=== PATIENT | male | born 1950 | race Caucasian/White ===

== ENCOUNTER 2018-07-28 14:16 | Outpatient (CLI) | payer MEDICARE ==
--- NOTE | 2018-07-28 14:40 | RAD ---
2 views of the lumbar spine: 07/28/2018 COMPARISON: 06/23/2018 HISTORY: Reevaluate lumbar spine fracture FINDINGS: As seen on the prior examination, an anterior wedge compression fracture/superior endplate fracture is noted involving the L1 vertebral body. The degree of vertebral body height loss is approximately 40%, unchanged when compared to the prior exam. There is multilevel disc space narrowin g and anterior osteophyte formation within the lumbar spine, stable. Anterolisthesis of L5 on S1 is again noted, measuring approximately 1 cm, on the basis of bilateral L5 pars defects. No new fracture is identified on this examination. IMPRESSION: Stable appearance of the lumbar spine as detailed above.
== END 2018-07-28 14:17 | disposition home or self-care (01) ==
LOC: TBSIIMAG 14:16
PROVIDERS: ATTEND Neurological Surgery
DX: S22.009A Unspecified fracture of unspecified thoracic vertebra, initial encounter for closed fracture (principal); S32.009A Unspecified fracture of unspecified lumbar vertebra, initial encounter for closed fracture
CPT/HCPCS: 72100

== ENCOUNTER 2018-08-26 14:14 | Outpatient (CLI) | payer MEDICARE ==
--- NOTE | 2018-08-26 14:36 | RAD ---
EXAM: XR Lumbar Spine 2 Or 3 View PROVIDED CLINICAL HISTORY: Thoracolumbar spine fractures. COMPARISON: 07/28/2018. FINDINGS: There is stable height loss of an anterior wedge-shaped compression fracture involving the L1 vertebr al body. There is also questionable slight height loss involving the superior endplate of the L2 vertebral body unchanged from prior exam. Multilevel degenerative changes are seen throughout the lum bar spine with multilevel osteophytes present. There is stable anterolisthesis of L5 on S1 on the basis of bilateral pars defects. Trace anterolisthesis of L4 on L5 noted on the prior exam is not dem onstrated on this study. Prominent vascular calcifications are seen in the abdominal aorta and iliac arteries. Artifact overlies the lumbar spine likely related to overlying back brace. IMPRESSION: 1. Stable height loss of a wedge-shaped compression fracture L1 vertebral body. 2. Questionable minimal height loss involving the superior endplate of the L2 vertebral body. However , this is also a stable finding. 3. Multilevel degenerative changes with stable spondylolisthesis at the lumbosacral junction.
== END 2018-08-26 14:15 | disposition home or self-care (01) ==
LOC: TBSIIMAG 14:14
PROVIDERS: ATTEND Neurological Surgery
DX: S22.008A Other fracture of unspecified thoracic vertebra, initial encounter for closed fracture (principal); M47.817 Spondylosis without myelopathy or radiculopathy, lumbosacral region; M43.17 Spondylolisthesis, lumbosacral region
CPT/HCPCS: 72100

== ENCOUNTER 2018-10-14 14:57 | Inpatient (IN) | payer MEDICARE ==
[2018-10-14 15:35] LABS: #Eosinphils 0.1 thou/uL (0.0-0.7); #Lymphocytes 1.1 thou/uL (1.20-3.40); #Monocytes 0.7 thou/uL (0.11-0.59); #Neutrophils 3.9 thou/uL (1.40-6.50); %Basophils 0.3 % (0.0-1.0); %Eosinophils 2.4 % (0.0-10.0); %Lymphocytes 18.6 % (21.0-51.0); %Monocytes 11.9 % (0.0-10.0); %Neutrophils 66.7 % (42.0-75.0); Hemoglobin 11.7 g/dL (14.0-18.0); Mean Corpuscular HGB CONC 36.5 g/dL (32.0-36.0); Mean Corpuscular Hemoglobin 33.8 pg (27.0-31.0); Mean Corpuscular Volume 92.7 fL (78.0-98.0); Mean Platelet Volume 5.7 fL (7.4-10.4); Platelet Count 242 thou/uL (130-400); RBC Distribution Width 11.4 % (11.5-14.5); Red Blood Cell (RBC) Count 3.45 mill/uL (4.70-6.10); White Blood Cell (WBC) Count 5.9 thou/uL (4.8-10.8)
[2018-10-14 15:41] LABS: ALT (SGPT) 12 U/L (8-55); AST (SGOT) 18 U/L (5-34); Albumin 4.2 g/dL (3.4-4.8); Alkaline Phosphatase 105 U/L (40-150); Anion Gap 13 mmol/L (10-20); BUN (Urea Nitrogen) 10 mg/dL (8.4-25.7); Bilirubin, Total 0.5 mg/dL (0.2-1.2); Calc. Creatinine Clearance 0 mL/min (70-130); Calcium 8.9 mg/dL (7.8-10.44); Carbon Dioxide 24 mmol/L (23-31); Chloride 78 mmol/L (98-107); Estimated GFR-MDRD Greater than 90; Globulin 2.9 g/dL (2.4-3.5); Glucose 84 mg/dL (80-115); Potassium 3.4 mmol/L (3.5-5.1); Protein, Total 7.1 g/dL (5.8-8.1)
[2018-10-14 15:47] LABS: Sodium 112 mmol/L (136-145)
[2018-10-14] MEDS ORDERED: Multivitamins, Adult 10 ML, Folic Acid 1 MG, Thiamine HCl 100 MG in Dextrose 5 %-0.45 %... IV SCH (16:15)
[2018-10-14 16:19] LABS: Bilirubin Negative (Negative); Blood, Urine Negative (Negative); Clarity Clear (Clear); Glucose, Urine (Dipstick) Normal (Negative); Leukocyte Negative Leu/uL (Negative); Nitrite Negative (Negative); Protein, Urine (Dipstick) Negative (Neg-Trace); Urobilinogen Normal mg/dL (Less than 2)
[2018-10-14] MEDS ORDERED: Melatonin 3 MG TAB PO PRN (17:03)
[2018-10-14] MEDS ORDERED: Lorazepam 2 MG/ML VIAL SLOW IVP PRN (17:06)
[2018-10-14 17:34] LABS: Anion Gap 11 mmol/L (10-20); BUN (Urea Nitrogen) 9 mg/dL (8.4-25.7); Calc. Creatinine Clearance 0 mL/min (70-130); Calcium 8.8 mg/dL (7.8-10.44); Carbon Dioxide 26 mmol/L (23-31); Chloride 82 mmol/L (98-107); Estimated GFR-MDRD Greater than 90; Glucose 99 mg/dL (80-115); Potassium 3.3 mmol/L (3.5-5.1)
[2018-10-14 17:39] LABS: Sodium 116 mmol/L (136-145)
--- NOTE | 2018-10-14 18:12 | HP ---
CHIEF COMPLAINT: Abnormal labs. HISTORY OF PRESENT ILLNESS: A 68-year-old male with history of hypertension, seizures, hospitalized here last month in conjunction with pneumonia, depression , dyslipidemia, tobacco abuse, daily alcohol use, who presents to the emergency room at the instruction of his primary care provider due to a low sodium level. The patient reports that his hip has been hurting him since his last admission here and he was seen by his primary care provider, Dr. Guajardo, yesterday. At that visit, labs were ordered and he was called today and told that his sodium is low and he needed to come to the emergency room. He denies any fevers or chills, nausea or vomiting, lightheadedness or dizziness. He does report a poor appetite and very little solid food intake, states the majority of his day is spent drinking water or beer. He denies any precipitating or relieving factors. He was hospitalized for something similar out at [facility] earlier this year and his medications were adjusted at that time. For the hip pain, the patient reports he was on ibuprofen, taking 4 tablets of 200 mg each about 4 times per day, denies any other pain medications. He has had 2 to 3 episodes of nonbloody diarrhea recently, none today. In the emergency room, the patient found to have a sodium level today of 112, yesterday was 113, and hospitalist called for admission. He did receive 1 L of normal saline, has ordered 1 L of banana bag; however, this has been stopped and very little of it has infused. He also had a 2nd liter of NS infusing that was d/c. ALLERGIES: NO KNOWN DRUG ALLERGIES. CURRENT MEDICATIONS: Reconciled with the bottles. 1. Amlodipine 10 mg daily. 2. Florastor 250 mg daily. 3. Thiamine 250 mg one-half tablet daily. 4. Isosorbide mononitrate 60 mg daily. 5. Clonidine 0.2 mg one-half tablet b.i.d. 6. Magnesium oxide 400 mg daily. 7. Melatonin 3 mg at bedtime. 8. Benazepril 20 mg b.i.d. 9. Fluoxetine 10 mg daily at bedtime. 10. Multivitamin daily. 11. Coenzyme Q10. 12. Vitamin D one-half tablet daily. 13. Vitamin E daily. PAST MEDICAL HISTORY: 1. Hypertension. 2. Dyslipidemia. 3. Insomnia. 4. Seizures, diagnosed at last hospitalization here. 5. Hyponatremia with prior hospitalization this year at outside hospital. PAST SURGICAL HISTORY: Denies. SOCIAL HISTORY: The patient reports that he has 1 or 2 beers per day, states that he cut down since his last hospitalization and at that time was drinking 8 to 12 beers per day. He reports 8 cigarettes per day, down from 2 packs per day. His daughters Peggy West and Dary Chow are his surrogate decision makers and he is a full code. FAMILY HISTORY: Significant for heart problems. REVIEW OF SYSTEMS: Positive for diarrhea, anorexia. Negative for lightheaded, dizzy, fevers, chills, nausea, vomiting, abdominal pain, or seizures. All remaining review of systems are reviewed and negative. PHYSICAL EXAMINATION: VITAL SIGNS: Blood pressure 151/86, pulse 76, respirations 16, temperature 98.4 , sats 96% on room air. GENERAL: Alert and oriented, thin male, in no apparent distress. Able to speak in full sentence and answer appropriately. HEENT: His pupils are equal and round. No scleral icterus. Oral mucosa is pink and moist. NECK: Supple and nontender. LYMPHATICS: No palpable cervical or supraclavicular lymphadenopathy. LUNGS: Clear to auscultation bilateral. No audible wheezing, rhonchi, or rales. HEART: Normal S1 and S2. Regular rate and rhythm. No significant murmur. ABDOMEN: Soft. Present bowel sounds. Nontender. Nondistended. EXTREMITIES: No edema. SKIN: No visible rashes. VASCULAR: 2+ dorsalis pedis pulses. TALAVERA FINDINGS AND TEST RESULTS: CBC; 5.9, 11.7, 32.0, 242 with an MCV of 92. Chemistry; 112, 3.4, 78, 24, 10, 0.66, 84. LFTs are normal. Urinalysis; specific gravity 1.005 and negative. IMPRESSION: 1. Hyponatremia, hypochloremia in the context of poor p.o. intake for solid food , and what sounds, excessive water intake as well as beer. 2. Hypokalemia, mild. 3. Normocytic anemia, mild. 4. Hypertension, unknown control. 5. Depression, unknown control. 6. Tobacco abuse. 7. Seizure with last hospitalization, attributed to pneumonia. PLAN: 1. Admission to the ICU due to the severe hyponatremia. 2. Consultation with Dr. Schaeffer of Nephrology and by protocol Pulmonology Critical Care. 3. Fluid restriction of 1 L per day on a regular diet. All IV fluids have been stopped to include the banana bag. 4. Potassium replacement. 5. Continuing his antihypertensives with hold parameters to avoid hypotension. 6. P.r.n. Ativan for seizures, agitation, or signs of alcohol withdrawal in conjunction with the ASE protocol. One exception of the HAYLIE protocol is the banana bag, which will not be infused due to the hyponatremia. 7. Monitoring with q.4 hour BMPs. 8. We will obtain urine osmolalities, TSH and a cortisol level in the morning. 9. Vitamin supplementation with folic acid, vitamin B12, and thiamine. 10. Nicotine replacement as needed. 11. DVT prophylaxis with pneumatic compression devices. 12. GI prophylaxis not indicated. 13. Code status is full and surrogate decision maker are the patient's daughters as noted above. 14. The patient is at high risk given age, comorbidities, and current presentation. Job ID: [id number] [facility]OSPITALBritni
[2018-10-14] MEDS ORDERED: Potassium Chloride 20 MEQ TAB PO SCH ×2 (18:30→22:00)
[2018-10-14 18:57] VITALS: BMI 21.9
[2018-10-14] MEDS: Nicotine 14 MG PATCH TD SCH (18:58)
[2018-10-14 19:20] LABS: Anion Gap 12 mmol/L (10-20); BUN (Urea Nitrogen) 9 mg/dL (8.4-25.7); Calc. Creatinine Clearance 99 mL/min (70-130); Calcium 9.1 mg/dL (7.8-10.44); Carbon Dioxide 27 mmol/L (23-31); Chloride 84 mmol/L (98-107); Estimated GFR-MDRD Greater than 90; Glucose 95 mg/dL (80-115); Potassium 3.1 mmol/L (3.5-5.1); Sodium 120 mmol/L (136-145)
--- NOTE | 2018-10-14 19:23 | CON ---
DATE OF CONSULTATION: 10/14/2018 REASON FOR CONSULTATION: Hyponatremia. HISTORY OF PRESENT ILLNESS: A 68-year-old gentleman who was sent to the hospital after he was noted to have a sodium of 112. The patient was given 1 L of normal saline before I examining the patient, and the patient's sodium has increased to 116. The patient denies headache, numbness, tingling, or weakness. Denies any nausea, vomiting, or chest pain. PAST MEDICAL HISTORY: Significant for hypertension; anemia; hyponatremia, multiple occasions; history of beer abuse; history of seizures. PAST SURGICAL HISTORY: None. MEDICATIONS: Home medications list reviewed. Hospital medication list reviewed. ALLERGIES: REVIEWED. REVIEW OF SYSTEMS: Fifteen-point review of system was performed, negative except for positive noted above. A 12-point review of systems was performed and was negative except for positives noted above. GENERAL: HEAD: NECK: No swelling or lumps. NOSE: No epistaxis or discharge. EYES: No diplopia or pain. RESPIRATORY: CARDIOVASCULAR: GASTROINTESTINAL: /[employer]: MUSCULOSKELETAL: No joint pain. NEUROPSYCHIATIC SYSTEMS: No suicidal ideation. No ideation. SKIN: Denies any rash or ulcer. CONSTITUTIONAL: No fever or chills. PHYSICAL EXAMINATION: GENERAL: The patient is awake and alert. VITAL SIGNS: Afebrile, pulse 75, breathing 16, blood pressure was 151/86. GENERAL APPEARANCE AND MENTAL STATUS: Fair. HEAD/NECK: Normocephalic. Atraumatic. EYES: EOMI. No deformity. EARS: Clear. No ulcers. NOSE: Intact. No lesions. MOUTH: Clear. No discharge. THROAT: Clear. No exudate. LUNGS: Clear. No crackles. CARDIAC: S1, S2. No rub. ABDOMEN: Benign. Bowel sounds positive. GENITALIA/RECTUM: Cline absent. BACK/EXTREMITIES: Edema 0+. NEUROLOGICAL: Alert and motor intact. SKIN: LYMPHATICS: LABORATORY DATA: Sodium 116. ASSESSMENT AND RECOMMENDATIONS: 1. Hyponatremia, most likely syndrome of inappropriate antidiuretic hormone as well as decreased protein intake. I would recommend fluid restriction and following sodium closely. If the sodium corrects more than 9 mEq in 24 hours, then please start the patient on D5W at 100 mL/h. 2. Hypertension. Titrate home medication. 3. Alcohol abuse. Consult Psych. 4. Overall prognosis is guarded. Job ID: [id number]
[2018-10-14] MEDS ORDERED: Dextrose 5% in Water 1,000 ML IV SCH (19:30)
--- NOTE | 2018-10-14 19:30 | PDOC.EVN ---
Event Note - Event Note Event Note: repeated the BMP again - sodium is now 120 and potassium is 3.1. Pt has corrected by 8 meq in [address] Schaeffer who recommends starting D5W at 100 ml/hr as the correction is too rapid and repeat BMP in 3 hours. Discussed with RN - to call Dr. Schaeffer with next BMP result, start IVF and monitor for change. Pt has received 1st oral potassium, I ordered an additional dose for 4 hours from now. Pt c/o hip pain - ordered tylenol 500 mg q6h - uncertain status of his liver function - goal of no more than 2 grams in 24 hours.
[2018-10-14] MEDS: Acetaminophen 500 MG TAB PO PRN (19:36)
[2018-10-14] MEDS: Lisinopril 20 MG TAB PO SCH (20:51)
[2018-10-14] MEDS: cloNIDine 0.1 MG TAB PO SCH (20:51)
[2018-10-14 23:31] LABS: Anion Gap 12 mmol/L (10-20); BUN (Urea Nitrogen) 9 mg/dL (8.4-25.7); Calc. Creatinine Clearance 102 mL/min (70-130); Calcium 8.7 mg/dL (7.8-10.44); Carbon Dioxide 25 mmol/L (23-31); Chloride 87 mmol/L (98-107); Estimated GFR-MDRD Greater than 90; Glucose 116 mg/dL (80-115); Potassium 3.4 mmol/L (3.5-5.1); Sodium 121 mmol/L (136-145)
[2018-10-15] MEDS: Acetaminophen 500 MG TAB PO PRN ×3 (03:47→21:55)
[2018-10-15 05:27] LABS: #Eosinphils 0.2 thou/uL (0.0-0.7); #Lymphocytes 0.9 thou/uL (1.20-3.40); #Monocytes 0.8 thou/uL (0.11-0.59); #Neutrophils 4.2 thou/uL (1.40-6.50); %Eosinophils 3.2 % (0.0-10.0); %Lymphocytes 14.8 % (21.0-51.0); %Monocytes 12.7 % (0.0-10.0); %Neutrophils 69.4 % (42.0-75.0); Hemoglobin 12.6 g/dL (14.0-18.0); Mean Corpuscular HGB CONC 34.8 g/dL (32.0-36.0); Mean Corpuscular Hemoglobin 32.9 pg (27.0-31.0); Mean Corpuscular Volume 94.7 fL (78.0-98.0); Mean Platelet Volume 5.8 fL (7.4-10.4); Platelet Count 264 thou/uL (130-400); RBC Distribution Width 11.4 % (11.5-14.5); Red Blood Cell (RBC) Count 3.82 mill/uL (4.70-6.10); White Blood Cell (WBC) Count 6.1 thou/uL (4.8-10.8)
[2018-10-15 05:55] LABS: Anion Gap 12 mmol/L (10-20); BUN (Urea Nitrogen) 8 mg/dL (8.4-25.7); Calc. Creatinine Clearance 106 mL/min (70-130); Calcium 9.2 mg/dL (7.8-10.44); Carbon Dioxide 24 mmol/L (23-31); Chloride 89 mmol/L (98-107); Estimated GFR-MDRD Greater than 90; Glucose 104 mg/dL (80-115); Sodium 121 mmol/L (136-145)
[2018-10-15] MEDS: FLUoxetine HCl 10 MG CAP PO SCH (08:32)
[2018-10-15] MEDS: Multivitamins CHEW w/Iron Tablet PO SCH (08:32)
[2018-10-15] MEDS: cloNIDine 0.1 MG TAB PO SCH ×2 (08:32→20:33)
[2018-10-15] MEDS: Magnesium Oxide 400 MG TAB PO SCH (08:33)
[2018-10-15] MEDS: Folic Acid 1 MG TAB PO SCH (08:33)
[2018-10-15] MEDS: Thiamine 100 MG TAB PO SCH (08:33)
[2018-10-15] MEDS: Lisinopril 20 MG TAB PO SCH ×2 (08:33→20:34)
[2018-10-15] MEDS: Amlodipine 10 MG TAB PO SCH (08:33)
[2018-10-15] MEDS: Cyanocobalamin (Vitamin B-12) 1,000 MCG TAB PO SCH (08:33)
[2018-10-15] MEDS ORDERED: Prevnar 13-Val Conj/PF 0.5 ML SYRINGE IM ONE (09:00)
[2018-10-15 10:18] LABS: Anion Gap 9 mmol/L (10-20); BUN (Urea Nitrogen) 7 mg/dL (8.4-25.7); Calc. Creatinine Clearance 102 mL/min (70-130); Calcium 9.3 mg/dL (7.8-10.44); Carbon Dioxide 26 mmol/L (23-31); Chloride 89 mmol/L (98-107); Estimated GFR-MDRD Greater than 90; Glucose 157 mg/dL (80-115); Potassium 3.6 mmol/L (3.5-5.1); Sodium 120 mmol/L (136-145)
--- NOTE | 2018-10-15 11:49 | PRG ---
DATE OF SERVICE: 10/15/2018 SUBJECTIVE: A 68-year-old gentleman being seen for hyponatremia. The patient denies any nausea, vomiting, or chest pain. OBJECTIVE: See above. The patient is awake and alert, in no acute distress. VITAL SIGNS: Afebrile, pulse 77, breathing 16, blood pressure 110/66. GENERAL APPEARANCE AND MENTAL STATUS: Fair. HEAD/NECK: Normocephalic. Atraumatic. EYES: EOMI. No deformity. EARS: Clear. No ulcers. NOSE: Intact. No lesions. MOUTH: Clear. No discharge. THROAT: Clear. No exudate. LUNGS: Clear. No crackles. CARDIAC: S1, S2. No rub. ABDOMEN: Benign. Bowel sounds positive. GENITALIA/RECTUM: Cline absent. BACK/EXTREMITIES: Edema 0+. NEUROLOGICAL: Alert and motor intact. SKIN: LYMPHATICS: LABORATORY DATA: Labs show hemoglobin 12.6. Sodium is 120. ASSESSMENT AND PLAN: 1. Hyponatremia due to syndrome of inappropriate antidiuretic hormone secretion improved. Stop D5W. 2. Anemia, stable. Medication based on GFR appropriate. No indication for dialysis. Job ID: [id number]
[2018-10-15 15:15] LABS: Sodium 125 mmol/L (136-145)
--- NOTE | 2018-10-15 15:20 | PDOC.HOSPP ---
- Subjective Encounter Date: 10/15/18 Encounter Time: 07:00 Subjective: pt is doing well, he has no nausea or vomiting, he is alert and oriented, he is able to walk Patient seen and examined. No new complaints. No overnight events - Objective Vital Signs & Weight: Vital Signs (12 hours) Temp BP Pulse Ox 10/15/18 12:00 98.2 F 10/15/18 08:33 178/96 H 10/15/18 08:32 178/96 H 10/15/18 07:16 95 10/15/18 07:00 98.8 F 10/15/18 04:00 97.6 F Weight Admit Weight 143 lb Weight 143 lb 15.39 oz Most Recent Monitor Data Heart Rate from ECG 76 NIBP 126/68 NIBP BP-Mean 87 Respiration from ECG 12 SpO2 96 I&O: 10/14/18 10/15/18 10/16/18 06:59 06:59 06:59 Intake Total 1299 600 Output Total 2400 1550 Balance -1101 -950 Result Diagrams: 10/15/18 05:12 10/15/18 14:49 EKG Reviewed by me: Yes (nsr) ROS - Review of Systems Constitutional: denies: fever, chills, sweats, weakness, malaise, other Eyes: denies: pain, vision change, conjunctivae inflammation, eyelid inflammation, redness, other ENT: denies: ear pain, ear discharge, nose pain, nose discharge, nose congestion , mouth pain, mouth swelling, throat pain, throat swelling, other Respiratory: denies: cough, dry, shortness of breath, hemoptysis, SOB with excertion, pleuritic pain, sputum, wheezing, other Cardiovascular: denies: chest pain, palpitations, orthopnea, paroxysmal noc. dyspnea, edema, light headedness, other Gastrointestinal: denies: nausea, vomitting, abdominal pain, diarrhea, constipation, melena, hematochezia, other Genitourinary: denies: dysuria, frequency, incontinence, hematuria, retention, other Musculoskeletal: denies: neck pain, shoulder pain, arm pain, back pain, hand pain, leg pain, foot pain, other Skin: denies: rash, lesions, mario, bruising, other - Medication Medications: Active Medications Generic Name Dose Route Start Last Admin Trade Name Freq PRN Reason Stop Dose Admin Acetaminophen 500 mg 10/14/18 19:23 10/15/18 03:47 Tylenol PO 500 mg Q6H PRN Administration Pain Amlodipine Besylate 10 mg 10/15/18 09:00 10/15/18 08:33 Norvasc PO 10 mg DAILY ENEDELIA Administration Clonidine 0.1 mg 10/14/18 21:00 10/15/18 08:32 Catapres PO 0.1 mg BID ENEDELIA Administration Cyanocobalamin 1,000 mcg 10/15/18 09:00 10/15/18 08:33 Vitamin B-12 PO 1,000 mcg DAILY ENEDELIA Administration Fluoxetine HCl 10 mg 10/15/18 09:00 10/15/18 08:32 Prozac PO 10 mg DAILY ENEDELIA Administration Folic Acid 1 mg 10/15/18 09:00 10/15/18 08:33 Folvite PO 1 mg DAILY [facility] Administration Isosorbide Mononitrate 60 mg 10/15/18 09:00 10/15/18 08:34 Imdur PO 60 mg DAILY [facility] Administration Lisinopril 20 mg 10/14/18 21:00 10/15/18 08:33 Zestril PO 20 mg BID ENEDELIA Administration Magnesium Oxide 400 mg 10/15/18 09:00 10/15/18 08:33 Magnesium Oxide PO 400 mg DAILY [facility] Administration Multivitamins/Iron 1 tab 10/15/18 09:00 10/15/18 08:32 Centrum Kids Complete/Iron PO 1 tab DAILY [facility] Administration Nicotine 14 mg 10/14/18 17:00 10/14/18 18:58 Nicoderm Patch TD 14 mg Q24HR [facility] Administration Thiamine HCl 100 mg 10/15/18 09:00 10/15/18 08:33 Thiamine PO 100 mg DAILY [facility] Administration - Exam NAD, awake alert Eye: PERRL, anicteric sclera ENT: normocephalic atraumatic, no oropharyngeal lesions Neck: supple, symmetric, no JVD Heart: RRR, no murmur, no gallops, no rubs Respiratory: CTAB, no wheezes, no rales, no ronchi Gastrointestinal: soft, non-tender, non-distended, normal bowel sounds Extremities: no cyanosis, no clubbing, no edema Skin: normal turgor, no lesions Neurological: CN's grossly intact, normal sensation to touch, no new deficit Musculoskeletal: normal tone, normal strength, no muscle wasting Psychiatric: normal affect, normal behavior, A&O x 3 Hosp A/P (1) Hyponatremia Code(s): E87.1 - HYPO-OSMOLALITY AND HYPONATREMIA Status: Acute (2) Alcohol abuse Code(s): F10.10 - ALCOHOL ABUSE, UNCOMPLICATED Status: Chronic (3) HTN (hypertension) Code(s): I10 - ESSENTIAL (PRIMARY) HYPERTENSION Status: Chronic (4) Tobacco abuse Code(s): Z72.0 - TOBACCO USE Status: Chronic - Plan old records reviewed/req sodium is improving will DC dex IVF will monitor sodium continue fluid restriction stable for transfer to medical nephrology following medication reviewed as above symptomatic treatment counselled to avoid tobacco and alcohol
[2018-10-15] MEDS: Nicotine 14 MG PATCH TD SCH (16:55)
[2018-10-16 07:32] VITALS: BP 134/84; TEMP 98
[2018-10-16 08:32] LABS: Anion Gap 16 mmol/L (10-20); BUN (Urea Nitrogen) 12 mg/dL (8.4-25.7); Calc. Creatinine Clearance 93 mL/min (70-130); Calcium 9.7 mg/dL (7.8-10.44); Carbon Dioxide 24 mmol/L (23-31); Chloride 91 mmol/L (98-107); Estimated GFR-MDRD Greater than 90; Glucose 98 mg/dL (80-115); Potassium 3.7 mmol/L (3.5-5.1); Sodium 127 mmol/L (136-145)
[2018-10-16] MEDS: Acetaminophen 500 MG TAB PO PRN (08:37)
[2018-10-16] MEDS: cloNIDine 0.1 MG TAB PO SCH (08:37)
[2018-10-16] MEDS: Lisinopril 20 MG TAB PO SCH (08:38)
[2018-10-16] MEDS: Multivitamins CHEW w/Iron Tablet PO SCH (08:38)
[2018-10-16] MEDS: FLUoxetine HCl 10 MG CAP PO SCH (08:38)
[2018-10-16] MEDS: Amlodipine 10 MG TAB PO SCH (08:38)
[2018-10-16] MEDS: Folic Acid 1 MG TAB PO SCH (08:38)
[2018-10-16] MEDS: Cyanocobalamin (Vitamin B-12) 1,000 MCG TAB PO SCH (08:38)
[2018-10-16] MEDS: Thiamine 100 MG TAB PO SCH (08:38)
[2018-10-16] MEDS: Magnesium Oxide 400 MG TAB PO SCH (08:39)
--- NOTE | 2018-10-16 15:28 | DIS ---
DATE OF ADMISSION: 10/14/2018 DATE OF DISCHARGE: 10/16/2018 DISCHARGE DIAGNOSES: 1. Hyponatremia. 2. Hypokalemia. 3. Normocytic anemia. 4. Hypertension. 5. History of depression. 6. Tobacco abuse. 7. Alcohol consumption/abuse. HISTORY OF PRESENT ILLNESS: This patient is a 68-year-old male who presented via the emergency department as instructed by his primary care provider after receiving labs. He was told his sodium level was low and he needed to present to the emergency department. He largely denied any symptoms. He did admit to drinking a fair amount of water every day and has a history of drinking alcohol to excess and eating very little, especially in the way of protein. The patient was felt to have beer potomania and associated hyponatremia. He also had a potassium of 3.4. HOSPITAL COURSE: The patient was admitted to the hospital with hyponatremia while quite significant was generally asymptomatic. He was seen in consultation by Nephrology. He was started on fluid restrictions. With that the patient's sodium did improve. His potassium came down a bit requiring some replacement. The patient's sodium actually improved fairly quickly and he was started on D5 half W. Once his sodium was more stabilized, D5W was stopped and ultimately his sodium increased to 127. Reviewing the records, the patient's sodium typically never got above 130, so this was felt to be a comfortable range for the patient, especially in light of the fact that he had no symptoms related to this. The patient did have a cortisol level checked that was 14.10. TSH was 1.28. Sodium was ultimately corrected to 3.7. PHYSICAL EXAMINATION: VITAL SIGNS: On the day of discharge temperature was 98, pulse 83, BP 134/84, he was 96% on room air. GENERAL: He was awake and alert. HEART: Regular rate and rhythm. LUNGS: Clear bilaterally. ABDOMEN: Soft, nontender, and nondistended. Positive bowel sounds. No masses. No organomegaly. EXTREMITIES: Warm, dry, no cyanosis, clubbing or edema. DISPOSITION: The patient is discharged to home. CONDITION: He is in stable condition. ACTIVITY: As tolerated. DIET: He should be on a high-protein regular diet. He should minimize his alcohol consumption and stop altogether, if possible and avoid excessive water intake. Home medications will be unchanged. Please see his discharge medication list for further details. FOLLOWUP: He will follow up with [facility] in [place], Bela Guajardo in [place] and Dr. Meléndez in 3 days for repeat labs. He can return to the hospital should he have any problems prior to that time. Time spent in discharge activity, greater than 50% of which was spent in face to face time with the patient, was 33 min. Job ID: [id number] MTDD
--- NOTE | 2018-10-16 16:49 | PRG ---
DATE OF SERVICE: 10/16/2018 SUBJECTIVE: This is a 68-year-old gentleman being seen for hyponatremia. The patient denies any nausea, vomiting, or chest pain. OBJECTIVE: GENERAL: The patient is awake and alert. VITAL SIGNS: Afebrile. Pulse 83, breathing 16, blood pressure 134/84. GENERAL APPEARANCE AND MENTAL STATUS: Fair. HEAD/NECK: Normocephalic. Atraumatic. EYES: EOMI. No deformity. EARS: Clear. No ulcers. NOSE: Intact. No lesions. MOUTH: Clear. No discharge. THROAT: Clear. No exudate. LUNGS: Clear. No crackles. CARDIAC: S1, S2. No rub. ABDOMEN: Benign. Bowel sounds positive. GENITALIA/RECTUM: Cline absent. BACK/EXTREMITIES: Edema 0+. NEUROLOGICAL: Alert and motor intact. SKIN: LYMPHATICS: LABORATORY DATA: Hemoglobin 12.6. Sodium 127. ASSESSMENT AND RECOMMENDATION: 1. Chronic kidney disease, stage 1, stable. 2. Hypertension, stable. 3. Hyponatremia, improved. 4. Recommend fluid restriction. 5. No indication for hypertonic saline. Job ID: [id number]
== END 2018-10-16 17:36 | disposition home or self-care (01) | DRG 645 ==
LOC: ERS 14:57 → CCU 16:37 → T4-A 10-15 16:12
PROVIDERS: ADMIT Family Medicine; ATTEND Family Medicine
DX: E22.2 Syndrome of inappropriate secretion of antidiuretic hormone (principal); E78.5 Hyperlipidemia, unspecified; G47.00 Insomnia, unspecified; F32.9 Major depressive disorder, single episode, unspecified; F17.210 Nicotine dependence, cigarettes, uncomplicated; E87.8 Other disorders of electrolyte and fluid balance, not elsewhere classified; E87.6 Hypokalemia; F10.10 Alcohol abuse, uncomplicated; D63.1 Anemia in chronic kidney disease; N18.1 Chronic kidney disease, stage 1; I12.9 Hypertensive chronic kidney disease with stage 1 through stage 4 chronic kidney disease, or unspecified chronic kidney disease; Z87.01 Personal history of pneumonia (recurrent); Z79.899 Other long term (current) drug therapy
CPT/HCPCS: 36415; 80048; 80053; 81003; 82533; 83735; 84443; 85025; 96361; 96374; J3411; J7042

== ENCOUNTER 2018-11-24 13:42 | Outpatient (CLI) | payer MEDICARE ==
--- NOTE | 2018-11-24 14:10 | RAD ---
XR Lumbar Spine 2 Or 3 View History: M 48.56 XA compression fracture Comparison: Lumbar spine radiographs August 26, 2018 Findings: No significant further height loss of the L1 compression fracture. There is also a compress ion fracture superior endplate of L2 and L4, unchanged. Grade 2 L5 over S1 anterolisthesis. Bilateral pars interarticularis defects of L5. Bones are demineralized. Dense calcifications of the aorta. Likely insufficiency fracture of the left sacrum. Impression: 1. No further height loss of the L1 compression fracture with greater than 50% anterior height loss. 2. Unchanged appearance of the L2 superior endplate compression deformity and L4 superior endplate co mpression deformity. 3. Unchanged grade 2 L5 over S1 anterolisthesis with bilateral pars interarticularis defects. 4. High suspicion of insufficiency fracture left sacrum.
== END 2018-11-24 13:43 | disposition home or self-care (01) ==
LOC: TBSIIMAG 13:42
PROVIDERS: ATTEND Neurological Surgery
DX: M48.56XA Collapsed vertebra, not elsewhere classified, lumbar region, initial encounter for fracture (principal); M43.17 Spondylolisthesis, lumbosacral region; M43.8X6 Other specified deforming dorsopathies, lumbar region
CPT/HCPCS: 72100

== ENCOUNTER 2018-12-10 21:32 | Inpatient (IN) | payer MEDICARE ==
[2018-12-10] MEDS ORDERED: HYDROcodone/Acetaminophen 10/325 mg Tablet ONE (21:58)
[2018-12-10 22:44] LABS: Magnesium 1.7 mg/dL (1.6-2.6)
[2018-12-10 22:47] LABS: Sodium 115 mmol/L (136-145)
[2018-12-11 00:20] VITALS: BMI 21.2
[2018-12-11 04:54] LABS: Anion Gap 16 mmol/L (10-20); BUN (Urea Nitrogen) 7 mg/dL (8.4-25.7); Calc. Creatinine Clearance 106 mL/min (70-130); Calcium 9.2 mg/dL (7.8-10.44); Carbon Dioxide 21 mmol/L (23-31); Chloride 82 mmol/L (98-107); Estimated GFR-MDRD Greater than 90; Glucose 91 mg/dL (80-115); Potassium 3.2 mmol/L (3.5-5.1)
[2018-12-11 04:59] LABS: Sodium 116 mmol/L (136-145)
[2018-12-11] MEDS ORDERED: Prevnar 13-Val Conj/PF 0.5 ML SYRINGE IM ONE (09:00)
[2018-12-11] MEDS ORDERED: FLU VACC TS2019-20(65YR UP)/PF 180 MCG/0.5 ML SYRINGE IM ONE (09:00)
[2018-12-11] MEDS ORDERED: Potassium Chloride 20 MEQ TAB PO SCH (10:00)
--- NOTE | 2018-12-11 10:48 | PDOC.PALCO ---
Palliative Care Consult - Consult Details Requesting Physician: Dr White Reason for Consult: symptom management Family Members Present: none - Pertinent HPI Increased weakness, presented to emergency room via ems, hyponatremia. Generalized weakness. Reports daily alcohol intake. - Pertinent PMH Seizure this summer, - Social History Smoking Status: Current every day smoker Smoking: cigarettes Alcohol Use: heavy Drug Use History: none - Medications MAR Reviewed: Yes - Allergies Allergies/Adverse Reactions: Allergies Allergy/AdvReac Type Severity Reaction Status Date / Time No Known Allergies Allergy Verified 12/11/18 00:20 - Subjective Denies specific complaints today except weakness. ROS: 10 point review otherwise negative - Objective Vital Signs: Vital Signs - Most Recent Temp Pulse Resp BP Pulse Ox 97.9 F 90 18 163/99 H 95 12/11/18 07:39 12/11/18 07:39 12/11/18 07:39 12/11/18 07:39 12/11/18 07:39 Palliative Performance Scale: 70 - Physical Exam Constitutional: NAD HEENT: PERRLA, moist MMs Respiratory: unlabored breathing Cardiovascular: RRR Gastrointestinal: soft, non-tender Neurological: moves all 4 limbs Psychiatric: A&O x 3 Deviation from normal: mildly depressed Skin: cap refill <2 seconds Deviation from normal: fair turgor - Plan/Recommendations Plan: Visited with patient at length to possible reasoning behind low sodium, admits to daily drinks (3-4) however in the conversation states maybe more. Discussed considering alcohol abstinence. Open to having gentlemen from AA call and possibly come visit. *Will give patient a schedule for AA meetings in the area *provide patient with phone numbers of men to call who have chosen to stop drinking alcohol *Support patient and identify triggers for alcohol consumption [60] minutes spent on this encounter with >50% of the time in counseling and coordination of care. Thank you for this very appropriate consult.
[2018-12-11 10:50] LABS: Anion Gap 12 mmol/L (10-20); BUN (Urea Nitrogen) 7 mg/dL (8.4-25.7); Calc. Creatinine Clearance 107 mL/min (70-130); Calcium 9.1 mg/dL (7.8-10.44); Carbon Dioxide 26 mmol/L (23-31); Chloride 84 mmol/L (98-107); Estimated GFR-MDRD Greater than 90; Glucose 99 mg/dL (80-115); Potassium 3.2 mmol/L (3.5-5.1)
[2018-12-11 10:54] LABS: Sodium 119 mmol/L (136-145)
[2018-12-11] MEDS ORDERED: Senokot S 8.6-50 MG TAB PO PRN (12:13)
[2018-12-11] MEDS ORDERED: Guaifenesin DM 100-10/5 ML UDCUP PO PRN (12:13)
[2018-12-11] MEDS ORDERED: Acetaminophen 325 MG TAB PO PRN (12:13)
[2018-12-11] MEDS ORDERED: HYDROcodone/Acetaminophen 5/325 mg Tablet PO PRN (12:13)
[2018-12-11] MEDS ORDERED: HYDROcodone/Acetaminophen 10/325 mg Tablet PO PRN (12:13)
[2018-12-11] MEDS ORDERED: Bisacodyl 10 MG SUPP PR PRN (12:13)
--- NOTE | 2018-12-11 13:17 | CON ---
DATE OF CONSULTATION: REASON FOR CONSULTATION: Hyponatremia. HISTORY OF PRESENT ILLNESS: This is a 68-year-old gentleman, who presented to the hospital after having excessive amount of fluid intake, was noted to have a sodium of 116. The patient has had chronic hyponatremia on and off. His last sodium reportedly was 127 on October 27. The patient does have chronic pain. The patient was symptomatic with no memory loss, confusion. PAST MEDICAL HISTORY: Significant for hypertension, hyperlipidemia, insomnia, depression, chronic pain, osteoarthritis. SOCIOECONOMIC HISTORY: Alcohol and smoking positive. HOME MEDICATIONS: List reviewed. HOSPITAL MEDICATIONS: Reviewed. ALLERGIES: REVIEWED. REVIEW OF SYSTEMS: Fifteen-point review of systems was performed, negative, except for positives noted above. GENERAL: HEAD: NECK: No swelling or lumps. NOSE: No epistaxis or discharge. EYES: No diplopia or pain. RESPIRATORY: CARDIOVASCULAR: GASTROINTESTINAL: /VENEER SPLICER: MUSCULOSKELETAL: No joint pain. NEUROPSYCHIATRIC SYSTEMS: No suicidal ideation. No ideation. SKIN: Denies any rash or ulcer. CONSTITUTIONAL: No fever or chills. PHYSICAL EXAMINATION: See above. The patient is awake and alert, in no acute distress. VITAL SIGNS: Pulse 89, breathing 16, blood pressure 130/78. GENERAL APPEARANCE AND MENTAL STATUS: Fair. HEAD/NECK: Normocephalic. Atraumatic. EYES: EOMI. No deformity. EARS: Clear. No ulcers. NOSE: Intact. No lesions. MOUTH: Clear. No discharge. THROAT: Clear. No exudate. LUNGS: Clear. No crackles. CARDIAC: S1, S2. No rub. ABDOMEN: Benign. Bowel sounds positive. GENITALIA/RECTUM: Cline absent. BACK/EXTREMITIES: Edema 0+. NEUROLOGICAL: Alert and motor intact. SKIN: LYMPHATICS: LABORATORY DATA: Labs reviewed. ASSESSMENT AND PLAN: 1. Hyponatremia most likely because of syndrome of inappropriate antidiuretic hormone secretion pain, excessive fluid intake in the setting of fluoxetine HAYLIE inhibitors. I would recommend changing the fluoxetine to another agent. I will recommend monitoring sodium every 4 hours. 2. Hypokalemia, replace potassium. 3. Anemia, stable. Medication based on GFR appropriate. No indication for hypertonic saline at this time. The patient should be on 800 mL fluid restriction and labs should be followed every 4 hours, and the rate of correction should not be more than 6 mEq in 24 hours. 4. Noncompliance is a major issue. Job ID: [id number]
--- NOTE | 2018-12-11 15:01 | HP ---
REASON FOR ADMISSION: Hyponatremia, likely due to alcohol use and increased free water intake. HISTORY OF PRESENTING ILLNESS: The patient gives history of having gone to his primary care physician, Dr. Bela Guajardo yesterday for a regular checkup, this was in [place]. At around 06:00 p.m., he was told to go to the [place] ER due to his sodium being low at 114. The patient states that he drinks usually 5 to 6 L of water in addition to propel water with electrolytes and Gatorade as well. He ambulates with a walker due to left hip pain from osteoarthritis. He states that he drinks only two beers which are 12 ounces. He lives alone. No complaints of any specific weakness in any of the extremities. No complaints of chest pain, palpitation, PND, or orthopnea. No complaints of cough or expectoration. PAST MEDICAL AND SURGICAL HISTORY: The patient was recently discharged for similar diagnosis in October of 2018 from here. Hypertension, dyslipidemia, insomnia, [QAMARKER] chronic hyponatremia. No prior surgery. He has had EEG done on 09/21/2018, which was normal. Echo done on 09/17/2018 showed EF of 55% to 60% with mild concentric LVH. Pneumonia in August of 2018, tobacco abuse, and depression. CURRENT MEDICATIONS: The patient is on, 1. Tylenol No. 3 q.6 hourly p.r.n. for left hip pain. 2. Benazepril 20 mg twice daily. 3. Clonidine 0.1 mg twice daily. 4. Fluoxetine 20 mg daily. 5. Gabapentin 300 mg p.o. three times daily. 6. Imdur extended release 60 mg daily. 7. Multivitamin one tablet once daily. 8. CoQ10 100 mg one capsule daily. 9. Norvasc 10 mg daily. 10. Fluoxetine 10 mg p.o. nightly. 11. Magnesium oxide 400 mg p.o. daily. 12. Florastor 250 mg daily. 13. Thiamine 100 mg daily. 14. Vitamin E 400 units p.o. daily. ALLERGIES: NO KNOWN DRUG ALLERGIES. PERSONAL HISTORY: The patient states he has come down to half pack a day now. Drinks two beers, which are 12 ounces. Does not abuse drugs. He lives alone. Ambulates with a walker. He is . FAMILY HISTORY: He has two daughters. There is family history of heart disease. CODE STATUS: Full. Power of admitted attorneys is his daughter, Ms. Peggy West. REVIEW OF SYSTEMS: CONSTITUTIONAL: Negative for weight loss or gain, ability to conduct usual activities. SKIN: Negative for rash, itching. EYES: Negative for double vision, pain. ENT/MOUTH: Negative for nose bleeding, neck stiffness, pain, tenderness. CARDIOVASCULAR: Negative for palpitations, dyspnea on exertion, orthopnea. RESPIRATORY: Negative for shortness of breath, wheezing, cough, hemoptysis, fever or night sweats. GASTROINTESTINAL: Negative for poor appetite, abdominal pain, heartburn, nausea, vomiting, constipation, or diarrhea. GENITOURINARY: Negative for urgency, frequency, dysuria, nocturia. MUSCULOSKELETAL: Negative for pain, swelling. NEUROLOGIC/PSYCHIATRIC: Negative for anxiety, depression. ALLERGY/IMMUNOLOGIC: Negative for skin rash, bleeding tendency. PHYSICAL EXAMINATION: GENERAL: The patient is a 68-year-old male, who is currently not in any acute distress. VITAL SIGNS: Blood pressure 140/90, pulse 96 per minute, respiratory rate 18 per minute, temperature 97.5 degrees Fahrenheit, and saturating 95% on room air. NECK: Supple. No elevated JVD. HEENT: Eyes; extraocular muscles are intact. Pupils are reacting to light. Oral cavity, mucous membranes are moist. No exudates or congestion. CARDIOVASCULAR: S1 and S2 heard. Regular rhythm. RESPIRATORY: Air entry 2+ bilateral. Scattered rhonchi plus bilateral. No rales or wheezes. ABDOMEN: Soft. Bowel sounds heard. No tenderness, rigidity, or guarding. EXTREMITIES: No peripheral edema or calf tenderness. VASCULAR: Peripheral pulses 1+ bilateral. No ischemic ulcerations or gangrene. The patient has varicosities seen in both lower extremities. CENTRAL NERVOUS SYSTEM: No gross focal deficits noted. The patient is alert, awake, and oriented well. PSYCHIATRIC: The patient's mood is euthymic. No hallucinations or delusions. LABORATORY DATA: White count of 6, H and H 11 and 31, platelet count 281, MCV is 90 with 68% neutrophils. Sodium 115 on admission, currently 119; BUN 8, creatinine 0.6, serum bicarb 24, serum osmolality 239, urine osmolality 194. Liver enzymes are within normal limits. Albumin is 4.4. EKG done shows sinus rhythm at 86 beats per minute. CLINICAL IMPRESSION AND PLAN: The patient will be admitted to medical floor for recurrent hyponatremia, likely due to excessive oral intake of free water. He is also on multiple medications, which could potentially lower his sodium levels. He has had recent hospitalization for similar issue. We will continue him on Norvasc, clonidine, Tylenol No. 3, fluoxetine as before, Neurontin, DuoNebs, Imdur, lisinopril, magnesium oxide, and CoQ10 as before. He will be on fluid restriction up to [address] Schaeffer, nephrologists has been consulted from the ER and has evaluated the patient. We will obtain PT/OT evaluations as well. He has chronic left hip osteoarthritis and uses a rolling walker to ambulate. Job ID: [id number]
[2018-12-11] MEDS: Gabapentin 300 MG CAP PO SCH ×2 (15:06→20:23)
[2018-12-11 16:51] LABS: Anion Gap 13 mmol/L (10-20); BUN (Urea Nitrogen) 9 mg/dL (8.4-25.7); Calc. Creatinine Clearance 93 mL/min (70-130); Calcium 9.6 mg/dL (7.8-10.44); Carbon Dioxide 28 mmol/L (23-31); Chloride 83 mmol/L (98-107); Estimated GFR-MDRD Greater than 90; Glucose 95 mg/dL (80-115); Potassium 3.6 mmol/L (3.5-5.1); Sodium 120 mmol/L (136-145)
[2018-12-11] MEDS: Acetaminophen/Codeine 30-300mg Tablet PO PRN (19:34)
[2018-12-11] MEDS: cloNIDine 0.1 MG TAB PO SCH (20:22)
[2018-12-11] MEDS: Lisinopril 20 MG TAB PO SCH (20:23)
[2018-12-11] MEDS: Famotidine 20 MG TAB PO SCH (20:23)
[2018-12-11] MEDS ORDERED: FLUoxetine HCl 10 MG CAP PO SCH (21:00)
[2018-12-12 05:59] LABS: #Eosinphils 0.2 thou/uL (0.0-0.7); #Lymphocytes 1.6 thou/uL (1.20-3.40); #Monocytes 1.1 thou/uL (0.11-0.59); %Basophils 0.3 % (0.0-1.0); %Eosinophils 1.7 % (0.0-10.0); %Lymphocytes 17.5 % (21.0-51.0); %Monocytes 12.4 % (0.0-10.0); Hemoglobin 12.5 g/dL (14.0-18.0); Mean Corpuscular HGB CONC 35.4 g/dL (32.0-36.0); Mean Corpuscular Hemoglobin 33.2 pg (27.0-31.0); Mean Corpuscular Volume 93.8 fL (78.0-98.0); Platelet Count 270 thou/uL (130-400); RBC Distribution Width 12.1 % (11.5-14.5); Red Blood Cell (RBC) Count 3.77 mill/uL (4.70-6.10); White Blood Cell (WBC) Count 8.9 thou/uL (4.8-10.8)
[2018-12-12 06:13] LABS: Anion Gap 11 mmol/L (10-20); BUN (Urea Nitrogen) 16 mg/dL (8.4-25.7); Calc. Creatinine Clearance 84 mL/min (70-130); Carbon Dioxide 26 mmol/L (23-31); Chloride 85 mmol/L (98-107); Estimated GFR-MDRD Greater than 90; Glucose 102 mg/dL (80-115); Potassium 4.3 mmol/L (3.5-5.1)
[2018-12-12 06:16] LABS: Sodium 118 mmol/L (136-145)
[2018-12-12] MEDS: Amlodipine 10 MG TAB PO SCH (09:03)
[2018-12-12] MEDS: Saccharomyces boulardii 250 MG CAP PO SCH (09:03)
[2018-12-12] MEDS: cloNIDine 0.1 MG TAB PO SCH ×2 (09:03→20:22)
[2018-12-12] MEDS: Lisinopril 20 MG TAB PO SCH ×2 (09:03→20:22)
[2018-12-12] MEDS: Famotidine 20 MG TAB PO SCH ×2 (09:03→20:28)
[2018-12-12] MEDS: Thiamine 100 MG TAB PO SCH (09:03)
[2018-12-12] MEDS: Gabapentin 300 MG CAP PO SCH ×3 (09:03→20:28)
[2018-12-12] MEDS: Multivit, Therapeutic 1 TAB PO SCH (09:03)
[2018-12-12] MEDS: Magnesium Oxide 400 MG TAB PO SCH (09:03)
[2018-12-12] MEDS: FLUoxetine HCl 20 MG CAP PO SCH (09:03)
[2018-12-12] MEDS: Ubidecarenone 50 MG CAP PO SCH (09:04)
[2018-12-12] MEDS: Enoxaparin Sodium 40 MG/0.4 ML SYRINGE SC SCH (09:10)
[2018-12-12 10:46] LABS: Anion Gap 11 mmol/L (10-20); BUN (Urea Nitrogen) 15 mg/dL (8.4-25.7); Calc. Creatinine Clearance 83 mL/min (70-130); Calcium 8.8 mg/dL (7.8-10.44); Carbon Dioxide 24 mmol/L (23-31); Chloride 85 mmol/L (98-107); Estimated GFR-MDRD Greater than 90; Glucose 125 mg/dL (80-115); Potassium 3.1 mmol/L (3.5-5.1)
[2018-12-12 10:51] LABS: Sodium 117 mmol/L (136-145)
[2018-12-12] MEDS ORDERED: Potassium Chloride 20 MEQ TAB PO SCH (11:15)
[2018-12-12] MEDS ORDERED: Tolvaptan 15 MG TAB PO SCH (11:15)
--- NOTE | 2018-12-12 11:39 | PRG ---
DATE OF SERVICE: 12/12/2018 SUBJECTIVE: This is a 68-year-old gentleman being seen for hyponatremia. The patient denies any nausea, vomiting, or chest pain. OBJECTIVE: See above. The patient is awake, alert, in no acute distress. VITAL SIGNS: Afebrile, pulse 83, breathing 16, blood pressure 143/83. GENERAL APPEARANCE AND MENTAL STATUS: Fair. HEAD/NECK: Normocephalic. Atraumatic. EYES: EOMI. No deformity. EARS: Clear. No ulcers. NOSE: Intact. No lesions. MOUTH: Clear. No discharge. THROAT: Clear. No exudate. LUNGS: Clear. No crackles. CARDIAC: S1, S2. No rub. ABDOMEN: Benign. Bowel sounds positive. GENITALIA/RECTUM: Cline absent. BACK/EXTREMITIES: Edema 0+. NEUROLOGICAL: Alert and motor intact. SKIN: LYMPHATICS: LABORATORY DATA: Labs reviewed. ASSESSMENT AND PLAN: 1. Hyponatremia due to syndrome of inappropriate antidiuretic hormone secretion. We will give the patient dose of Samsca. 2. Hypokalemia. We will replace 40 mEq of potassium. 3. Syndrome of inappropriate antidiuretic hormone secretion. We will recommend stopping or changing fluoxetine and lisinopril both list of medication causing SIADH in the setting of alcohol abuse as well as fluid abuse. Overall prognosis remains poor. Job ID: [id number]
[2018-12-12] MEDS ORDERED: Sodium Chloride 0.9% 500 ML IVPB SCH (12:00)
--- NOTE | 2018-12-12 12:14 | PDOC.HOSPP ---
- Subjective Encounter Date: 12/12/18 Encounter Time: 12:00 Subjective: awake, not dizzy is watching tv - Objective Vital Signs & Weight: Vital Signs (12 hours) Temp Pulse Resp BP BP Pulse Ox 12/12/18 11:37 97.6 F 80 16 75/42 L 92 L 12/12/18 09:03 74 140/76 12/12/18 08:00 97.6 F 74 16 126/71 96 12/12/18 07:56 64 18 100 12/12/18 04:42 97.4 F L 83 18 134/74 99 Weight Admit Weight 139 lb 4.8 oz Weight 139 lb 4.8 oz I&O: 12/11/18 12/12/18 12/13/18 06:59 06:59 06:59 Intake Total 0 720 Balance 0 720 Result Diagrams: 12/12/18 05:37 12/12/18 10:18 Hospitalist ROS - Medication Medications: Active Medications Generic Name Dose Route Start Last Admin Trade Name Freq PRN Reason Stop Dose Admin Acetaminophen/Codeine Phosphate 1 tab 12/11/18 12:13 12/11/18 19:34 Tylenol #3 PO 1 tab Q6H PRN Administration Mild Pain (1-3) Albuterol/Ipratropium 3 ml 12/11/18 13:00 12/12/18 07:56 Duoneb NEB 3 ml [id number] ENEDELIA Administration Amlodipine Besylate 10 mg 12/12/18 09:00 12/12/18 09:03 Norvasc PO 10 mg DAILY ENEDELIA Administration Clonidine 0.1 mg 12/11/18 21:00 12/12/18 09:03 Catapres PO 0.1 mg BID ENEDELIA Administration Coenzyme Q10 50 mg 12/12/18 09:00 12/12/18 09:04 Coenzyme Q10 PO 50 mg DAILY ENEDELIA Administration Enoxaparin Sodium 40 mg 12/12/18 09:00 12/12/18 09:10 Lovenox SC 40 mg 0900 ENEDELIA Administration Famotidine 20 mg 12/11/18 21:00 12/12/18 09:03 Pepcid PO 20 mg BID ENEDELIA Administration Fluoxetine HCl 20 mg 12/12/18 09:00 12/12/18 09:03 Prozac PO 20 mg DAILY ENEDELIA Administration Fluoxetine HCl 10 mg 12/11/18 21:00 12/11/18 20:23 Prozac PO 10 mg HS ENEDELIA Administration Gabapentin 300 mg 12/11/18 15:00 12/12/18 09:03 Neurontin PO 300 mg TID ENEDELIA Administration Sodium Chloride 500 mls @ 999 mls/hr 12/12/18 12:00 12/12/18 11:52 Normal Saline 0.9% IVPB 12/12/18 12:30 500 mls .Q31M ENEDELIA Administration Isosorbide Mononitrate 60 mg 12/12/18 09:00 12/12/18 09:03 Imdur PO 60 mg DAILY ENEDELIA Administration Lisinopril 20 mg 12/11/18 21:00 12/12/18 09:03 Zestril PO 20 mg BID ENEDELIA Administration Magnesium Oxide 400 mg 12/12/18 09:00 12/12/18 09:03 Magnesium Oxide PO 400 mg DAILY EENDELIA Administration Multivitamins 1 tab 12/12/18 09:00 12/12/18 09:03 Theragran PO 1 tab DAILY ENEDELIA Administration Potassium Chloride 40 meq 12/12/18 11:15 12/12/18 11:41 K-Dur PO 12/12/18 13:00 40 meq NOW ENEDELIA Administration Saccharomyces Boulardii 250 mg 12/12/18 09:00 12/12/18 09:03 Florastor PO 250 mg DAILY ENEDELIA Administration Thiamine HCl 100 mg 12/12/18 09:00 12/12/18 09:03 Thiamine PO 100 mg DAILY ENEDELIA Administration - Exam General Appearance: NAD, awake alert Eye: PERRL, anicteric sclera ENT: no oropharyngeal lesions, dry oral mucosa Neck: supple, no JVD Heart: RRR, no murmur Respiratory: no wheezes, no rales Gastrointestinal: soft, non-tender, non-distended, normal bowel sounds Extremities: no cyanosis, no edema Neurological: cranial nerve grossly intact, no focal deficits Psychiatric: normal affect, A&O x 3 Hosp A/P (1) Hyponatremia Code(s): E87.1 - HYPO-OSMOLALITY AND HYPONATREMIA Status: Acute (2) Hypotension Status: Acute (3) HTN (hypertension) Code(s): I10 - ESSENTIAL (PRIMARY) HYPERTENSION Status: Chronic (4) CAD (coronary artery disease) Code(s): I25.10 - ATHSCL HEART DISEASE OF [place] CORONARY ARTERY W/O ANG PCTRS Status: Chronic Qualifiers: Coronary Disease-Associated Artery/Lesion type: [place] artery [place] vs. transplanted heart: [place] heart Associated angina: without angina Qualified Code(s): I25.10 - Atherosclerotic heart disease of [place] coronary artery without angina pectoris (5) Tobacco abuse Code(s): Z72.0 - TOBACCO USE Status: Chronic - Plan neurostable BP is low, will give 500ml NS bolus now d/w , he is on fluid restriction, will be started on vaptans by nephrology dc fluoxetine at bedtime will f/u
[2018-12-12 13:36] LABS: Anion Gap 13 mmol/L (10-20); BUN (Urea Nitrogen) 19 mg/dL (8.4-25.7); Calc. Creatinine Clearance 68 mL/min (70-130); Calcium 8.7 mg/dL (7.8-10.44); Carbon Dioxide 23 mmol/L (23-31); Chloride 87 mmol/L (98-107); Estimated GFR-MDRD 82; Glucose 118 mg/dL (80-115); Potassium 3.8 mmol/L (3.5-5.1)
[2018-12-12 13:39] LABS: Sodium 119 mmol/L (136-145)
[2018-12-12 17:38] LABS: Anion Gap 14 mmol/L (10-20); BUN (Urea Nitrogen) 23 mg/dL (8.4-25.7); Calc. Creatinine Clearance 48 mL/min (70-130); Calcium 9.1 mg/dL (7.8-10.44); Carbon Dioxide 24 mmol/L (23-31); Chloride 87 mmol/L (98-107); Estimated GFR-MDRD 55; Glucose 113 mg/dL (80-115); Sodium 121 mmol/L (136-145)
[2018-12-12] MEDS: Tolvaptan 15 MG TAB PO SCH (20:28)
[2018-12-12 21:36] LABS: Anion Gap 13 mmol/L (10-20); BUN (Urea Nitrogen) 27 mg/dL (8.4-25.7); Calc. Creatinine Clearance 46 mL/min (70-130); Calcium 8.9 mg/dL (7.8-10.44); Carbon Dioxide 24 mmol/L (23-31); Chloride 87 mmol/L (98-107); Estimated GFR-MDRD 52; Glucose 117 mg/dL (80-115); Potassium 3.8 mmol/L (3.5-5.1); Sodium 120 mmol/L (136-145)
[2018-12-13] MEDS ORDERED: Sodium Chloride 0.9% 1,000 ML IV SCH (07:00)
[2018-12-13 08:27] LABS: Anion Gap 14 mmol/L (10-20); BUN (Urea Nitrogen) 21 mg/dL (8.4-25.7); Calc. Creatinine Clearance 75 mL/min (70-130); Calcium 9.6 mg/dL (7.8-10.44); Carbon Dioxide 27 mmol/L (23-31); Chloride 92 mmol/L (98-107); Estimated GFR-MDRD Greater than 90; Glucose 115 mg/dL (80-115); Potassium 4.5 mmol/L (3.5-5.1); Sodium 128 mmol/L (136-145)
[2018-12-13] MEDS: cloNIDine 0.1 MG TAB PO SCH ×2 (09:59→20:53)
[2018-12-13] MEDS: Thiamine 100 MG TAB PO SCH (09:59)
[2018-12-13] MEDS: Enoxaparin Sodium 40 MG/0.4 ML SYRINGE SC SCH (09:59)
[2018-12-13] MEDS: Magnesium Oxide 400 MG TAB PO SCH (09:59)
[2018-12-13] MEDS: FLUoxetine HCl 20 MG CAP PO SCH (09:59)
[2018-12-13] MEDS: Tolvaptan 15 MG TAB PO SCH (09:59)
[2018-12-13] MEDS: Gabapentin 300 MG CAP PO SCH ×3 (09:59→20:51)
[2018-12-13] MEDS: Famotidine 20 MG TAB PO SCH ×2 (09:59→20:50)
[2018-12-13] MEDS: Lisinopril 20 MG TAB PO SCH ×2 (09:59→20:54)
[2018-12-13] MEDS: Ubidecarenone 50 MG CAP PO SCH (09:59)
[2018-12-13] MEDS: Saccharomyces boulardii 250 MG CAP PO SCH (09:59)
[2018-12-13] MEDS: Multivit, Therapeutic 1 TAB PO SCH (09:59)
[2018-12-13] MEDS: Amlodipine 10 MG TAB PO SCH (09:59)
--- NOTE | 2018-12-13 11:23 | PDOC.HOSPP ---
- Subjective Encounter Date: 12/13/18 Encounter Time: 10:45 Subjective: no dizziness,feels better no sob says he is ambulating in room - Objective Vital Signs & Weight: Vital Signs (12 hours) Temp Pulse Resp BP BP Pulse Ox 12/13/18 09:59 98 89/52 L 12/13/18 08:00 97.6 F 94 16 97/63 94 L 12/13/18 04:41 95 12/13/18 03:51 97.8 F 98 20 91/53 L 88 L Weight Admit Weight 139 lb 4.8 oz Weight 139 lb 4.8 oz I&O: 12/12/18 12/13/18 12/14/18 06:59 06:59 06:59 Intake Total 720 980 Balance 720 980 Result Diagrams: 12/12/18 05:37 12/13/18 07:55 Hospitalist ROS - Medication Medications: Active Medications Generic Name Dose Route Start Last Admin Trade Name Freq PRN Reason Stop Dose Admin Acetaminophen/Codeine Phosphate 1 tab 12/11/18 12:13 12/11/18 19:34 Tylenol #3 PO 1 tab Q6H PRN Administration Mild Pain (1-3) Albuterol/Ipratropium 3 ml 12/11/18 13:00 12/13/18 08:20 Duoneb NEB Not Given [id number] ENEDELIA Amlodipine Besylate 10 mg 12/12/18 09:00 12/13/18 09:59 Norvasc PO Not Given DAILY [facility] Clonidine 0.1 mg 12/11/18 21:00 12/13/18 09:59 Catapres PO Not Given BID ENEDELIA Coenzyme Q10 50 mg 12/12/18 09:00 12/13/18 09:59 Coenzyme Q10 PO Not Given DAILY ENEDELIA Enoxaparin Sodium 40 mg 12/12/18 09:00 12/13/18 09:59 Lovenox SC 40 mg 0900 ENEDELIA Administration Famotidine 20 mg 12/11/18 21:00 12/13/18 09:59 Pepcid PO 20 mg BID ENEDELIA Administration Fluoxetine HCl 20 mg 12/12/18 09:00 12/13/18 09:59 Prozac PO 20 mg DAILY ENEDELIA Administration Gabapentin 300 mg 12/11/18 15:00 12/13/18 09:59 Neurontin PO 300 mg TID ENEDELIA Administration Sodium Chloride 1,000 mls @ 75 mls/hr 12/13/18 07:00 12/13/18 10:07 Normal Saline 0.9% IV 1,000 mls .[id number] ENEDELIA Administration Isosorbide Mononitrate 60 mg 12/12/18 09:00 12/13/18 09:59 Imdur PO 60 mg DAILY ENEDELIA Administration Lisinopril 20 mg 12/11/18 21:00 12/13/18 09:59 Zestril PO Not Given BID ENEDELIA Magnesium Oxide 400 mg 12/12/18 09:00 12/13/18 09:59 Magnesium Oxide PO 400 mg DAILY ENEDELIA Administration Multivitamins 1 tab 12/12/18 09:00 12/13/18 09:59 Theragran PO 1 tab DAILY ENEDELIA Administration Saccharomyces Boulardii 250 mg 12/12/18 09:00 12/13/18 09:59 Florastor PO 250 mg DAILY ENEDELIA Administration Sodium Chloride 10 ml 12/13/18 09:00 12/13/18 09:59 Flush - Normal Saline IVF 10 ml Q12HR ENEDELIA Administration Thiamine HCl 100 mg 12/12/18 09:00 12/13/18 09:59 Thiamine PO 100 mg DAILY ENEDELIA Administration Tolvaptan 15 mg 12/12/18 21:00 12/13/18 09:59 Samsca PO 15 mg BID ENEDELIA Administration - Exam General Appearance: NAD, awake alert Eye: PERRL, anicteric sclera ENT: no oropharyngeal lesions, dry oral mucosa Neck: supple, no JVD Heart: RRR, no murmur Respiratory: no wheezes, no rales Gastrointestinal: soft, non-tender, non-distended, normal bowel sounds Extremities: no cyanosis, no edema Neurological: cranial nerve grossly intact, no focal deficits Psychiatric: normal affect, A&O x 3 Hosp A/P (1) Hyponatremia Code(s): E87.1 - HYPO-OSMOLALITY AND HYPONATREMIA Status: Acute (2) Hypotension Status: Acute (3) HTN (hypertension) Code(s): I10 - ESSENTIAL (PRIMARY) HYPERTENSION Status: Chronic (4) CAD (coronary artery disease) Code(s): I25.10 - ATHSCL HEART DISEASE OF [place] CORONARY ARTERY W/O ANG PCTRS Status: Chronic Qualifiers: Coronary Disease-Associated Artery/Lesion type: [place] artery [place] vs. transplanted heart: [place] heart Associated angina: without angina Qualified Code(s): I25.10 - Atherosclerotic heart disease of [place] coronary artery without angina pectoris (5) Tobacco abuse Code(s): Z72.0 - TOBACCO USE Status: Chronic - Plan neurostable BP is still low, will start NS. Sodium is slowly getting corrected (on over correction last 24hrs), dc d5w might lower his sod back to where it started. sodium level at 2 pm he is on oral fluid restriction, On samsca dc fluoxetine at bedtime will f/u
--- NOTE | 2018-12-13 12:32 | PRG ---
DATE OF SERVICE: 12/13/2018 SUBJECTIVE: A 68-year-old gentleman being seen for hyponatremia. The patient denied nausea, vomiting, or chest pain. OBJECTIVE: See above. The patient is awake and alert, in no acute distress. VITAL SIGNS: Pulse 98, breathing 16, blood pressure 97/63. GENERAL APPEARANCE AND MENTAL STATUS: Fair. HEAD/NECK: Normocephalic. Atraumatic. EYES: EOMI. No deformity. EARS: Clear. No ulcers. NOSE: Intact. No lesions. MOUTH: Clear. No discharge. THROAT: Clear. No exudate. LUNGS: Clear. No crackles. CARDIAC: S1, S2. No rub. ABDOMEN: Benign. Bowel sounds positive. GENITALIA/RECTUM: Cline absent. BACK/EXTREMITIES: Edema 0+. NEUROLOGICAL: Alert and motor intact. SKIN: LYMPHATICS: LABORATORY DATA: Labs reviewed. ASSESSMENT AND PLAN: 1. Chronic kidney disease stage 2, stable. 2. Hyponatremia due to syndrome of inappropriate antidiuretic hormone secretion. We will change the rate of correction back to 125. On my recommendation, start the patient on D5 water. 3. Hypokalemia, corrected. Somebody had inadvertently put an order for Samsca. I had just ordered the medication myself. I have discontinued that order. Job ID: [id number]
[2018-12-13 12:52] LABS: Anion Gap 11 mmol/L (10-20); BUN (Urea Nitrogen) 18 mg/dL (8.4-25.7); Calc. Creatinine Clearance 85 mL/min (70-130); Calcium 9.4 mg/dL (7.8-10.44); Carbon Dioxide 28 mmol/L (23-31); Chloride 94 mmol/L (98-107); Estimated GFR-MDRD Greater than 90; Glucose 73 mg/dL (80-115); Potassium 4.4 mmol/L (3.5-5.1); Sodium 129 mmol/L (136-145)
[2018-12-13] MEDS ORDERED: Dextrose 5% in Water 1,000 ML IV SCH (17:00)
[2018-12-13] MEDS: Acetaminophen/Codeine 30-300mg Tablet PO PRN (17:16)
[2018-12-13 20:27] LABS: Anion Gap 13 mmol/L (10-20); BUN (Urea Nitrogen) 18 mg/dL (8.4-25.7); Calc. Creatinine Clearance 72 mL/min (70-130); Carbon Dioxide 25 mmol/L (23-31); Chloride 95 mmol/L (98-107); Estimated GFR-MDRD 88; Glucose 143 mg/dL (80-115); Potassium 4.5 mmol/L (3.5-5.1); Sodium 128 mmol/L (136-145)
[2018-12-14] MEDS: Acetaminophen/Codeine 30-300mg Tablet PO PRN (02:14)
[2018-12-14 06:05] LABS: Anion Gap 13 mmol/L (10-20); BUN (Urea Nitrogen) 15 mg/dL (8.4-25.7); Calc. Creatinine Clearance 84 mL/min (70-130); Calcium 9.3 mg/dL (7.8-10.44); Carbon Dioxide 25 mmol/L (23-31); Chloride 94 mmol/L (98-107); Estimated GFR-MDRD Greater than 90; Glucose 107 mg/dL (80-115); Potassium 4.9 mmol/L (3.5-5.1); Sodium 127 mmol/L (136-145)
[2018-12-14 07:19] VITALS: TEMP 97.4
[2018-12-14] MEDS: cloNIDine 0.1 MG TAB PO SCH ×2 (07:23→07:24)
[2018-12-14] MEDS: Amlodipine 10 MG TAB PO SCH (07:24)
[2018-12-14] MEDS: Ubidecarenone 50 MG CAP PO SCH (08:39)
[2018-12-14] MEDS: FLUoxetine HCl 20 MG CAP PO SCH (08:39)
[2018-12-14] MEDS: Thiamine 100 MG TAB PO SCH (08:39)
[2018-12-14] MEDS: Magnesium Oxide 400 MG TAB PO SCH (08:39)
[2018-12-14] MEDS: Multivit, Therapeutic 1 TAB PO SCH (08:39)
[2018-12-14] MEDS: Famotidine 20 MG TAB PO SCH (08:39)
[2018-12-14] MEDS: Saccharomyces boulardii 250 MG CAP PO SCH (08:39)
[2018-12-14] MEDS: Gabapentin 300 MG CAP PO SCH (08:39)
[2018-12-14] MEDS: Enoxaparin Sodium 40 MG/0.4 ML SYRINGE SC SCH (08:40)
[2018-12-14 08:42] VITALS: BP 110/64
[2018-12-14] MEDS: Lisinopril 20 MG TAB PO SCH (08:42)
--- NOTE | 2018-12-14 10:59 | PRG ---
DATE OF SERVICE: 12/14/2018 SUBJECTIVE: Patient was seen and examined at bedside and overnight events noted. Patient denies any shortness of breath or chest pain or palpitation. No history of nausea or vomiting or diarrhea or fever or chills or cramps. OBJECTIVE: GENERAL: This is a well-built male, in no apparent distress. VITAL SIGNS: Temperature 97.4. Heart rate 72. Respiratory rate 16. Blood pressure 110/64. HEENT: Atraumatic, normocephalic. Oral mucosa is moist NECK: Supple. CARDIOVASCULAR: S1, S2 heard. Rate and rhythm regular. RESPIRATORY: Clear to auscultation. GASTROINTESTINAL: Abdomen is soft. MUSCULOSKELETAL: No tenderness. No edema. DERMATOLOGIC: No skin rash. NEUROLOGIC: Alert and awake and oriented X3. No focal neurologic deficits. Moving all the extremities. PSYCHIATRIC: Mood and affect normal. LABORATORY DATA: Sodium 127, BUN is 15, creatinine is 0.7, chloride is 94. ASSESSMENT AND PLAN: 1. Hyponatremia. Sodium level is stable. Limit fluid intake. Continue fluid restrictions. 2. Hypochloremia. 3. Edema, controlled. 4. History of hypertension. 5. Chronic kidney disease, stage 2. Job ID: [id number]
--- NOTE | 2018-12-14 17:22 | DIS ---
DATE OF ADMISSION: 12/11/2018 DATE OF DISCHARGE: 12/14/2018 DISCHARGE DISPOSITION: Home. PRIMARY DISCHARGE DIAGNOSIS: Recurrent hyponatremia due to increased fluid intake on water restriction at present. SECONDARY DISCHARGE DIAGNOSES: Coronary artery disease, history of hypertension, currently hypotensive, tobacco abuse. PROCEDURES DONE DURING HOSPITALIZATION: H and H 12 and 35, platelet count 270. Sodium levels were 115 on admission, discharge number is 127; BUN 15; creatinine 0.7. Serum bicarb 25 this morning. Urine osmolality 375. Serum osmolality was 256. DISCHARGE MEDICATIONS: 1. Benazepril 20 mg daily. 2. Fluoxetine 20 mg p.o. daily. 3. Gabapentin 300 mg p.o. three times daily. 4. Imdur extended release 60 mg p.o. daily. 5. Multivitamin one tablet once daily. 6. Norvasc 10 mg daily. 7. Magnesium oxide 400 mg p.o. daily. 8. Florastor 250 mg p.o. daily. 9. Thiamine 100 mg p.o. daily. 10. Vitamin E 400 units p.o. daily. ALLERGIES: NO KNOWN DRUG ALLERGIES. DISCHARGE PLAN: The patient to follow up with primary care physician, Ms. Bela Guajardo in 1 week. BRIEF COURSE DURING HOSPITALIZATION: The patient initially got admitted on the after he was sent over from his primary care physician's office for sodium levels of 114. He has had similar hospitalization recently. The patient has a habit of drinking 5 to 6 L of free water along with propel water with electrolytes and Gatorade as well. He was fluid restricted and had 2 doses of Samsca during his stay here. His sodium has come up to 127 this morning. He is neurologically and hemodynamically stable. The patient's blood pressure has been around 110/64. In view of this, his clonidine and Norvasc has been discontinued. He needs to continue benazepril 20 mg daily. Also, the patient's fluoxetine at bedtime has been discontinued due to recurrent hyponatremia. He is hemodynamically stable, ambulating and eating well prior to discharge. He was strongly counseled with regard to fluid restriction. Please note, I have seen and examined the patient on the day of discharge. Job ID: [id number]
== END 2018-12-14 14:09 | disposition home or self-care (01) | DRG 645 ==
LOC: ERS 21:32 → 2NO 12-11 00:17 → ONC 12-11 15:53
PROVIDERS: ADMIT Internal Medicine; ATTEND Internal Medicine
DX: E22.2 Syndrome of inappropriate secretion of antidiuretic hormone (principal); F17.210 Nicotine dependence, cigarettes, uncomplicated; I25.10 Atherosclerotic heart disease of native coronary artery without angina pectoris; I95.9 Hypotension, unspecified; G47.00 Insomnia, unspecified; E78.5 Hyperlipidemia, unspecified; F32.9 Major depressive disorder, single episode, unspecified; Z51.5 Encounter for palliative care; F10.10 Alcohol abuse, uncomplicated; I12.9 Hypertensive chronic kidney disease with stage 1 through stage 4 chronic kidney disease, or unspecified chronic kidney disease; N18.2 Chronic kidney disease, stage 2 (mild); G89.29 Other chronic pain; D63.1 Anemia in chronic kidney disease; E87.6 Hypokalemia; Z91.14 Patient's other noncompliance with medication regimen; M16.12 Unilateral primary osteoarthritis, left hip; E87.8 Other disorders of electrolyte and fluid balance, not elsewhere classified
CPT/HCPCS: 36415; 80048; 83735; 83930; 83935; 84300; 85025; 90471; 90670; 94640; 99291; G0009; J1650; J7070; J7620